=== PATIENT | female | born 2000 | race Caucasian/White ===

== ENCOUNTER 2022-07-05 09:58 | Outpatient (CLI) | payer OTHER, SELFPAY ==
[2022-07-05 13:40] LABS: Albumin* 3.8 g/dL (3.3-5.0)
[2022-07-05 13:43] LABS: Alkaline Phosphatase* 95 U/L (40-150); Aspartate Amino Transferase* 22 U/L (12-35); Bilirubin Direct* 0.3 mg/dL (0.0-0.5); Bilirubin Total* 0.5 mg/dL (0.1-1.5); Total Protein* 6.7 g/dL (6.0-8.3)
[2022-07-05 13:44] LABS: Alanine Aminotransferase* 16 U/L (4-35); Lipase* 69 U/L (23-300)
== END 2022-07-05 09:59 | disposition home or self-care (01) ==
PROVIDERS: Visit Provider Registered Nurse
DX: R10.13 Epigastric pain (principal)
CPT/HCPCS: 80076; 83690